=== PATIENT | female | born 1970 | race Two or more races ===

== ENCOUNTER 2021-07-11 05:48 | Day surgery (SDC) | payer OTHER ==
[~2021-07-11 05:48] MED LIST: AMLODIPINE BESY10 MG PO; ZESTRIL40 M1 PO
[2021-07-11] MEDS ORDERED: PERCOCET 5-3251 EACH PO (14:54)
[2021-07-11] MEDS ORDERED: POLY119PG PO (14:54)
[2021-07-11] MEDS ORDERED: NEURONTIN600 M1 PO (14:54)
== END 2021-07-11 16:55 | disposition home or self-care (01) ==
LOC: CIR.AMB 05:48
PROVIDERS: ATTEND Surgery
DX: K40.20 Bilateral inguinal hernia, without obstruction or gangrene, not specified as recurrent (principal); I10 Essential (primary) hypertension; F17.200 Nicotine dependence, unspecified, uncomplicated; K21.9 Gastro-esophageal reflux disease without esophagitis

== ENCOUNTER → 2023-03-08 | Emergency (ER) | payer OTHER ==
[~2023-03-08] VITALS: Ht 157.5 cm; Wt 83.5 kg
[~2023-03-08] MED LIST changes: +NEURONTIN600 M1 PO; +PERCOCET 5-3251 EACH PO; +POLY119PG PO
[2023-03-08 11:13] LABS: HEMATOCRIT 36.5 % (36.0-45.00); HEMOGLOBIN 11.9 g/dL (12.0-15.00); MEAN CELL VOLUME 75.2 fL (80.00-100.00); MEAN CORPUSCULAR HEMOGLOBIN 24.5 pg (27.00-32.0); MEAN CORPUSCULAR HGB CONC 32.6 g/dl (32.0-36.0); PLATELET COUNT 304 K/uL (150-450); RED BLOOD COUNT 4.85 M/uL (4.00-6.00); RED CELL DISTRIBUTION WIDTH 15.1 % (11.5-14.5)
== END | disposition home or self-care (01) ==
LOC: ER 09:16
PROVIDERS: General Practice
DX: J06.9 Acute upper respiratory infection, unspecified (principal); I10 Essential (primary) hypertension; Z20.822 Contact with and (suspected) exposure to COVID-19